=== PATIENT | male | born 1980 | race Caucasian/White ===

== ENCOUNTER 2022-01-20 23:56 | Emergency (ER) | payer OTHER ==
[2022-01-21] MEDS ORDERED: HYDROCODONE/APAP 10/325 TAB ONE (00:14)
[2022-01-21] MEDS ORDERED: TETANUS & DIPHTHERIA TOX,ADULT 0.5 ML VIAL ONE (00:20)
[2022-01-21 01:17] LABS: Absolute Lymphocytes (CBC) 0.6 K/uL (0.7-4.9); Hematocrit 41.9 % (39.6-49.0); Lymphocytes % 5.8 % (15.3-44.8); MCV 89.3 fL (80-100); MPV 8.7 fL (7.6-11.3); RBC Red Blood Cell Count 4.69 M/uL (4.33-5.43)
[2022-01-21 01:25] LABS: Protime INR 1.08
[2022-01-21 01:41] LABS: ALT/SGPT 28 U/L (12-78); AST/SGOT 21 U/L (15-37); Albumin 3.9 g/dL (3.4-5.0); Alkaline Phosphatase 74 U/L (45-117); Bilirubin Total 0.6 mg/dL (0.2-1.0); Protein, Total 6.9 g/dL (6.4-8.2)
[2022-01-21 01:45] LABS: Bilirubin Direct < 0.1 mg/dL (0-0.2)
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
[2022-01-21 05:00] VITALS: TEMP 98.3
[2022-01-21 05:36] VITALS: BP 152/102; O2SAT 98
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
== END 2022-01-21 04:43 | disposition home or self-care (01) ==
LOC: ER 23:56
DX: S00.83XA Contusion of other part of head, initial encounter (principal); S20.211A Contusion of right front wall of thorax, initial encounter; M54.2 Cervicalgia; U07.1 COVID-19; V89.2XXA Person injured in unspecified motor-vehicle accident, traffic, initial encounter; Y92.832 Beach as the place of occurrence of the external cause; Z23 Encounter for immunization; I10 Essential (primary) hypertension
CPT/HCPCS: 85025; 80048; 36415; 86900; 86850; 85610; 86901; 80076; 85730; 70450; 71250; 72125; 90471; 90714; 99284; U0003